=== PATIENT | female | born 1985 | race Caucasian/White ===

== ENCOUNTER 2019-01-18 19:18 | Emergency (ER) | payer OTHER ==
[2019-01-18] MEDS: HYDROmorphONE 2 MG/ML SYG IV (21:06)
[2019-01-18] MEDS: ONDANSETRON 4 MG INJ IV (21:06)
[2019-01-18 21:46] LABS: ETHANOL < 10.0 mg/dl (0-0)
[2019-01-18] MEDS: LIDOCAINE 1% (MDV) 20 ML INJ SC (22:03)
[2019-01-18] MEDS: LIDOCAINE 2% VISC 15 ML CUP PO (22:56)
== END 2019-01-18 23:47 | disposition home or self-care (01) ==
LOC: E/R 19:18
DX: S81.011A Laceration without foreign body, right knee, initial encounter (principal); S09.90XA Unspecified injury of head, initial encounter; R07.9 Chest pain, unspecified; R40.2142 Coma scale, eyes open, spontaneous, at arrival to emergency department; R40.2252 Coma scale, best verbal response, oriented, at arrival to emergency department; R40.2362 Coma scale, best motor response, obeys commands, at arrival to emergency department; R51 Headache; V89.2XXA Person injured in unspecified motor-vehicle accident, traffic, initial encounter
CPT/HCPCS: 12002; 70450; 71045; 72125; 73562; 80307; 96374; 96375; 99285-25

== ENCOUNTER 2019-01-21 00:08 | Emergency (ER) | payer OTHER | END 2019-01-21 05:47 | disposition home or self-care (01) | LOC: FTE 00:08 | DX: Z48.01 Encounter for change or removal of surgical wound dressing (principal) | CPT/HCPCS: 99283; Z7502 ==